=== PATIENT | male | born 1945 | race Caucasian/White ===

== ENCOUNTER 2018-10-19 15:31 | Inpatient (IN) ==
[2018-10-19] MEDS ORDERED: Sodium Chlor 0.9% Inj 500 ML IV.SIG SCH (16:00)
--- NOTE | 2018-10-19 16:02 | ED ---
HPI General Chief complaint: Weakness Stated complaint: weaknes/evac Time Seen by Provider: 10/19/18 15:37 Source: patient and EMS Mode of arrival: EMS Limitations: physical limitation History of Present Illness HPI narrative: Mr Meeks is a 73 year old male who presents to the ED for evaluation of weakness and SOB for several days. The patient has COPD and discontinued his steroid inhaler 3-4 months ago due to increased cost. He states that he has been feeling "off" for a few weeks and this week he has not gotten out of bed. His called [facility] and upon their arrival the patient's SpO2 was 74% on room air, which was corrected to 94% on 2L of O2 via nasal cannula. The patient denies SOB but states he feels tired all of the time and he has not eaten in 3-4 days. He states that he is lightheaded upon standing and has fallen 5-6 times when walking with his walker in the last 2 months, but he denies syncope or LOC. He denies chest pain, abdominal pain, palpitations, diarrhea, constipation, dizziness, or syncope. His PMH is significant for COPD and stage 3 renal failure. He is unsure what medications he takes besides an albuterol rescue inhaler. The patient smokes 15 cigarettes per day, but denies alcohol or drug use. Related Data Home Medications Medication Instructions Recorded Confirmed aspirin 81 mg PO DAILY 10/19/18 10/19/18 bisoprolol fumarate 5 mg PO DAILY 10/19/18 10/19/18 calcitriol 0.25 mcg PO DAILY 10/19/18 10/19/18 esomeprazole magnesium [Nexium] 20 mg PO DAILY 10/19/18 10/19/18 ferrous sulfate [Iron (ferrous 325 mg PO DAILY 10/19/18 10/19/18 sulfate)] imipramine HCl 50 mg PO DAILY 10/19/18 10/19/18 megestrol 400 mg PO DAILY 10/19/18 10/19/18 mirtazapine 7.5 mg PO DAILY 10/19/18 10/19/18 pravastatin 40 mg PO DAILY 10/19/18 10/19/18 Allergies Allergy/AdvReac Type Severity Reaction Status Date / Time No Known Allergies Allergy Verified 10/19/18 15:41 Review of Systems ROS: all other systems reviewed are negative FOR[facility]LY [facility] Medical History Medical History Asthma (Acute) COPD (chronic obstructive pulmonary disease) (Acute) Social History Social History Substance History: No History of Abuse Second Hand Smoke Exposure: Yes Smoking Status: Current every day smoker Tobacco Type: Cigarettes How Often Do You Have a Drink Containing Alcohol: Never Recent Travel in [facility] within the Last 8 Weeks: No Recent Out of Country Travel within the Last 8 Weeks: No Immunization History Tetanus Immunization: Unsure Exam Narrative Exam Narrative: GENERAL: anorexic and dishovled. SKIN: Warm and dry. HEAD: Atraumatic. Normocephalic. EYES: Pupils equal and round. No scleral icterus. No injection or drainage. ENT: No nasal bleeding or discharge. Mucous membranes pink and moist. Tongue is midline. No uvula deviation. NECK: Trachea midline. No JVD. CARDIOVASCULAR: Regular rate and rhythm. No murmurs, S3, S4. RESPIRATORY: No accessory muscle use. Some wheezing noted on the lower and upper lung garcia. Breath sounds equal bilaterally. GASTROINTESTINAL: Abdomen soft, non-tender, nondistended. Hepatic and splenic margins not palpable. MUSCULOSKELETAL: Extremities without clubbing, cyanosis, or edema. No obvious deformities. Full range of motion of the upper and lower extremity bilaterally. 2+ pulses bilaterally. NEUROLOGICAL: Awake and alert. No obvious cranial nerve deficits. Motor grossly within normal limits. Five out of 5 muscle strength in the arms and legs. Normal speech. PSYCHIATRIC: Appropriate mood and affect; insight and judgment normal. Course Initial Documented Vital Signs Temperature 97.9 F 10/19/18 15:49 Respiratory Rate 22 10/19/18 15:49 Blood Pressure 146/75 H 10/19/18 15:49 Last Documented Vital Signs Temperature 98.4 F 10/20/18 08:00 Pulse Rate 74 10/20/18 16:48 Respiratory Rate 18 10/20/18 16:48 Blood Pressure 155/74 H 10/20/18 08:00 Pulse Oximetry 96 10/20/18 09:32 Medical Decision Making MDM Narrative Medical decision making narrative: 73-year-old male that presents to the ED for evaluation of facial trauma and shortness of breath. Patient was properly examined and was found to have signs and symptoms of unclear etiology. Initially I was told that his saturation was in the 70s by [facility] but with oxygen he came to the 90s. Patient does not use suction at home. Probably patient is noncompliant secondary to issues getting his medications filled secondary to morning. Labs and imaging were ordered here. My attending was made aware of findings. Imaging did show what appears to be pneumonia on the right lung. Blood work did show what appears to be worsening kidney function as well as what appears to be elevated lactic acid. At this time patient does meet sepsis criteria. Patient started antibiotics IV. Fluids given. Patient was given breathing treatment as well as put on oxygen. Solumedrol was started as well. This time case was discussed with my attending Dr. Adorno who agrees the patient should be admitted. Case discussed with Dr. Watson who agrees admission to his service. Medical Screen Exam Complete: Yes Emergency Medical Condition: Yes Differential Diagnosis Differential Diagnosis: Hypoxia versus COPD exacerbation versus sepsis versus pneumonia versus failure to thrive versus kidney injury Medical Records Medical records reviewed: Yes I reviewed the patient's medical records. Lab Data Lab results reviewed: Yes I reviewed the patient's lab results. Result diagrams: 10/20/18 12:16 10/20/18 12:16 Lab Results 10/19/18 10/19/18 10/19/18 Range/Units 15:52 15:52 15:52 WBC 15.0 H (4.0-11.0) th/mm3 RBC 3.48 L (4.50-5.90) mil/mm3 Hgb 10.4 L (13.0-17.0) gm/dL Hct 32.6 L (39.0-51.0) % MCV 93.6 (80.0-100.0) fL MCH 30.0 (27.0-34.0) pg MCHC 32.0 (32.0-36.0) % RDW 16.7 (11.6-17.2) % Plt Count 196 (150-450) th/mm3 MPV 9.0 (7.0-11.0) fL Neut % (Auto) 80.1 H (16.0-70.0) % Lymph % (Auto) 12.6 (9.0-44.0) % Ocean % (Auto) 6.7 (0.0-8.0) % Eos % (Auto) 0.5 (0.0-4.0) % Baso % (Auto) 0.1 (0.0-2.0) % Neut # (Auto) 12.0 H (1.8-7.7) th/mm3 Lymph # (Auto) 1.9 (1.0-4.8) th/mm3 Ocean # (Auto) 1.0 H (0.0-0.9) th/mm3 Eos # (Auto) 0.1 (0.0-0.4) th/mm3 Baso # (Auto) 0.0 (0.0-0.2) th/mm3 WBC Differential . Differential Comment Auto diff final Puncture Site Patient Temperature O2 Saturation (90-100) % ABG pH (7.380-7.420) ABG pCO2 (38-42) mmHg ABG pO2 (61-120) mmHg ABG HCO3 (22-26) mmol/L ABG O2 Content (12.0-20.0) Vol % ABG Base Excess (-2-2) mmol/L ABG Methemoglobin (0-2) % Tyrell Test Hemoglobin (12.0-16.0) G/DL Carboxyhemoglobin (0-4) % Inspired O2 % Critical Value Sodium 148 H (136-145) meq/L Potassium 4.7 (3.5-5.1) meq/L Chloride 121 H (98-107) meq/L Carbon Dioxide 17.4 L (21.0-32.0) meq/L Anion Gap 10 (5-15) meq/L BUN 68 H (7-18) mg/dL Creatinine 3.15 H (0.60-1.30) mg/dL Estimated GFR 19 L (>89) mL/min Random Glucose 88 (74-106) mg/dL Lactic Acid 2.3 H (0.4-2.0) mmol/L Calcium 8.1 L (8.5-10.1) mg/dL Magnesium 1.3 L (1.5-2.5) mg/dL Total Bilirubin 0.3 (0.2-1.0) mg/dL AST 26 (15-37) U/L ALT 18 (12-78) U/L Alkaline Phosphatase 60 (45-117) U/L Total Creatine Kinase 37 L (39-308) U/L Troponin I Less than 0.02 L (0.02-0.05) ng/mL Total Protein 6.7 (6.4-8.2) g/dL Albumin 2.6 L (3.4-5.0) g/dL Prealbumin (20-40) mg/dL TSH 1.540 (0.358-3.740) uIU/mL Urine Color (Yellw/Straw) Urine Clarity (Clear) Urine pH (5.0-8.5) Ur Specific York (1.002-1.035) Urine Protein (Neg-Trace) mg/dL Urine Glucose (UA) (Negative) mg/dL Urine Ketones (Negative) mg/dL Urine Occult Blood (Negative) Urine Nitrate (Negative) Urine Bilirubin (Negative) Urine Urobilinogen (Less than 2) mg/dL Ur Leukocyte Esterase (Negative) Urine RBC (0-3) /hpf Urine WBC (0-5) /hpf Ur Squamous Epith Cells (0-5) /hpf Urine Mucus (Occasional) /lpf Micro UA Comment Ur Microscopic Review Urine Culture Comments 10/19/18 10/19/18 10/19/18 Range/Units 16:29 20:11 20:11 WBC (4.0-11.0) th/mm3 RBC (4.50-5.90) mil/mm3 Hgb (13.0-17.0) gm/dL Hct (39.0-51.0) % MCV (80.0-100.0) fL MCH (27.0-34.0) pg MCHC (32.0-36.0) % RDW (11.6-17.2) % Plt Count (150-450) th/mm3 MPV (7.0-11.0) fL Neut % (Auto) (16.0-70.0) % Lymph % (Auto) (9.0-44.0) % Ocean % (Auto) (0.0-8.0) % Eos % (Auto) (0.0-4.0) % Baso % (Auto) (0.0-2.0) % Neut # (Auto) (1.8-7.7) th/mm3 Lymph # (Auto) (1.0-4.8) th/mm3 Ocean # (Auto) (0.0-0.9) th/mm3 Eos # (Auto) (0.0-0.4) th/mm3 Baso # (Auto) (0.0-0.2) th/mm3 WBC Differential Differential Comment Puncture Site Right radial Patient Temperature 98.6 O2 Saturation 95 (90-100) % ABG pH 7.36 L (7.380-7.420) ABG pCO2 25 L (38-42) mmHg ABG pO2 96 (61-120) mmHg ABG HCO3 14 L* (22-26) mmol/L ABG O2 Content 14.9 (12.0-20.0) Vol % ABG Base Excess -10.8 L (-2-2) mmol/L ABG Methemoglobin 0.8 (0-2) % Tyrell Test Present Hemoglobin 11.1 L (12.0-16.0) G/DL Carboxyhemoglobin 0.9 (0-4) % Inspired O2 21 % Critical Value Yes Sodium 149 H (136-145) meq/L Potassium 4.4 (3.5-5.1) meq/L Chloride 121 H (98-107) meq/L Carbon Dioxide 13.5 L (21.0-32.0) meq/L Anion Gap 15 (5-15) meq/L BUN 63 H (7-18) mg/dL Creatinine 2.80 H (0.60-1.30) mg/dL Estimated GFR 22 L (>89) mL/min Random Glucose 87 (74-106) mg/dL Lactic Acid 1.3 (0.4-2.0) mmol/L Calcium 7.8 L (8.5-10.1) mg/dL Magnesium (1.5-2.5) mg/dL Total Bilirubin (0.2-1.0) mg/dL AST (15-37) U/L ALT (12-78) U/L Alkaline Phosphatase (45-117) U/L Total Creatine Kinase (39-308) U/L Troponin I (0.02-0.05) ng/mL Total Protein (6.4-8.2) g/dL Albumin (3.4-5.0) g/dL Prealbumin (20-40) mg/dL TSH (0.358-3.740) uIU/mL Urine Color (Yellw/Straw) Urine Clarity (Clear) Urine pH (5.0-8.5) Ur Specific York (1.002-1.035) Urine Protein (Neg-Trace) mg/dL Urine Glucose (UA) (Negative) mg/dL Urine Ketones (Negative) mg/dL Urine Occult Blood (Negative) Urine Nitrate (Negative) Urine Bilirubin (Negative) Urine Urobilinogen (Less than 2) mg/dL Ur Leukocyte Esterase (Negative) Urine RBC (0-3) /hpf Urine WBC (0-5) /hpf Ur Squamous Epith Cells (0-5) /hpf Urine Mucus (Occasional) /lpf Micro UA Comment Ur Microscopic Review Urine Culture Comments 10/20/18 10/20/18 10/20/18 Range/Units 06:00 12:16 12:16 WBC 11.6 H (4.0-11.0) th/mm3 RBC 2.95 L (4.50-5.90) mil/mm3 Hgb 8.9 L (13.0-17.0) gm/dL Hct 27.7 L (39.0-51.0) % MCV 93.9 (80.0-100.0) fL MCH 30.3 (27.0-34.0) pg MCHC 32.3 (32.0-36.0) % RDW 17.0 (11.6-17.2) % Plt Count 187 (150-450) th/mm3 MPV 9.4 (7.0-11.0) fL Neut % (Auto) 93.6 H (16.0-70.0) % Lymph % (Auto) 5.0 L (9.0-44.0) % Ocean % (Auto) 1.3 (0.0-8.0) % Eos % (Auto) 0.0 (0.0-4.0) % Baso % (Auto) 0.1 (0.0-2.0) % Neut # (Auto) 10.9 H (1.8-7.7) th/mm3 Lymph # (Auto) 0.6 L (1.0-4.8) th/mm3 Ocean # (Auto) 0.2 (0.0-0.9) th/mm3 Eos # (Auto) 0.0 (0.0-0.4) th/mm3 Baso # (Auto) 0.0 (0.0-0.2) th/mm3 WBC Differential . Differential Comment Auto diff final Puncture Site Patient Temperature O2 Saturation (90-100) % ABG pH (7.380-7.420) ABG pCO2 (38-42) mmHg ABG pO2 (61-120) mmHg ABG HCO3 (22-26) mmol/L ABG O2 Content (12.0-20.0) Vol % ABG Base Excess (-2-2) mmol/L ABG Methemoglobin (0-2) % Tyrell Test Hemoglobin (12.0-16.0) G/DL Carboxyhemoglobin (0-4) % Inspired O2 % Critical Value Sodium 153 H (136-145) meq/L Potassium 4.1 (3.5-5.1) meq/L Chloride 127 H (98-107) meq/L Carbon Dioxide 15.8 L (21.0-32.0) meq/L Anion Gap 10 (5-15) meq/L BUN 56 H (7-18) mg/dL Creatinine 2.63 H (0.60-1.30) mg/dL Estimated GFR 24 L (>89) mL/min Random Glucose 132 H (74-106) mg/dL Lactic Acid (0.4-2.0) mmol/L Calcium 7.8 L (8.5-10.1) mg/dL Magnesium (1.5-2.5) mg/dL Total Bilirubin (0.2-1.0) mg/dL AST (15-37) U/L ALT (12-78) U/L Alkaline Phosphatase (45-117) U/L Total Creatine Kinase (39-308) U/L Troponin I (0.02-0.05) ng/mL Total Protein (6.4-8.2) g/dL Albumin (3.4-5.0) g/dL Prealbumin 20 (20-40) mg/dL TSH (0.358-3.740) uIU/mL Urine Color Yellow (Yellw/Straw) Urine Clarity Clear (Clear) Urine pH 5.0 (5.0-8.5) Ur Specific York 1.017 (1.002-1.035) Urine Protein 100 H (Neg-Trace) mg/dL Urine Glucose (UA) Negative (Negative) mg/dL Urine Ketones Negative (Negative) mg/dL Urine Occult Blood Negative (Negative) Urine Nitrate Negative (Negative) Urine Bilirubin Negative (Negative) Urine Urobilinogen Less than 2 (Less than 2) mg/dL Ur Leukocyte Esterase Negative (Negative) Urine RBC 1 (0-3) /hpf Urine WBC 1 (0-5) /hpf Ur Squamous Epith Cells <1 (0-5) /hpf Urine Mucus Few H (Occasional) /lpf Micro UA Comment Culture not ind Ur Microscopic Review Not Reportable Urine Culture Comments Culture not ind Imaging Data Attestation: I personally reviewed and interpreted this imaging study as follows : Radiologist's impression: Chest X-Ray 10/19/18 15:43 CONCLUSION: Mild faint infiltrate in the peripheral aspect of the right upper lung. COPD with chronic interstitial changes. Venous Doppler Study 10/19/18 15:51 CONCLUSION: 1. Negative exam with no evidence of deep venous thrombosis. ECG Data Attestation: I personally reviewed and interpreted this ECG as follows: Interpretation: EKG shows sinus arrhythmia but no sign of acute ischemia and arrhythmia otherwise read by me and attending. Discharge Plan Discharge Disposition Patient Disposition: ED Admit(ED Internal Use Only) Discharge Order Discharge Orders: ED Use Only Admit Order (Routine); Ordered 10/19/18 Ordered By: Bola Norris Discharge Details Diagnosis: Sepsis, Pneumonia, Acute kidney injury Physicians Team ED Provider: Jocelin Adorno ED Midlevel Provider: Bola Norris Primary Care Provider: UNKNOWN, Attending Provider: Imani Huggins Other Providers: [employer] Status ED Status: Left Department Discharge Information Discharge Date/Time: 10/19/18 18:54
[2018-10-19 16:11] LABS: Baso % (Auto) 0.1 % (0.0-2.0); Eos # (Auto) 0.1 th/mm3 (0.0-0.4); Eos % (Auto) 0.5 % (0.0-4.0); Hematocrit 32.6 % (39.0-51.0); Hemoglobin 10.4 gm/dL (13.0-17.0); Lymph # (Auto) 1.9 th/mm3 (1.0-4.8); Lymph % (Auto) 12.6 % (9.0-44.0); Mean Corpuscular Volume 93.6 fL (80.0-100.0); Mono % (Auto) 6.7 % (0.0-8.0); Neut % (Auto) 80.1 % (16.0-70.0); Platelet Count 196 th/mm3 (150-450); Red Blood Count 3.48 mil/mm3 (4.50-5.90); Red Cell Distribution Width 16.7 % (11.6-17.2)
--- NOTE | 2018-10-19 16:21 | XR ---
EXAM DATE: 10/19/2018 4:18 PM EST AGE/SEX: 73 years / Male INDICATIONS: Cough. CLINICAL DATA: This is the patient's initial encounter. Patient reports that signs and symptoms have been present for 1 day and indicates a pain score of Nonresponsive. MEDICAL/SURGICAL HISTORY: Non-responsive. Non-responsive. COMPARISON: POI, XR CHEST PA AND LAT, 08/10/2016. . FINDINGS: There is hyperaeration of both lung garcia. There is chronic interstitial changes bilaterally. There is a mild faint infiltrate in the peripheral aspect of the right upper lung. Otherwise, the rest the lungs are grossly clear. There are no pleural effusions or pulmonary edema. The heart size is within normal limits. No other new or significant changes are seen compared to the prior exam. CONCLUSION: Mild faint infiltrate in the peripheral aspect of the right upper lung. COPD with chronic interstitial changes. Electronically signed by: Gonzalo Mercer MD Board Certified Radiologist 10/19/2018 4:19 PM EST
[2018-10-19 16:34] LABS: Alanine Aminotransferase 18 U/L (12-78); Albumin 2.6 g/dL (3.4-5.0); Anion Gap 10 meq/L (5-15); Aspartate Aminotransferase 26 U/L (15-37); Blood Urea Nitrogen 68 mg/dL (7-18); Calcium 8.1 mg/dL (8.5-10.1); Carbon Dioxide 17.4 meq/L (21.0-32.0); Chloride 121 meq/L (98-107); Glomerular Filtration Rate 19 mL/min (>89); Glucose,Random 88 mg/dL (74-106); Magnesium 1.3 mg/dL (1.5-2.5); Potassium 4.7 meq/L (3.5-5.1); Sodium 148 meq/L (136-145)
[2018-10-19 16:38] LABS: ABG Base Excess -10.8 mmol/L (-2-2); ABG PCO2 25 mmHg (38-42); ABG PO2 96 mmHg (61-120)
[2018-10-19 16:44] LABS: Alkaline Phosphatase 60 U/L (45-117); Total Protein 6.7 g/dL (6.4-8.2)
[2018-10-19 16:46] LABS: Creatine Kinase 37 U/L (39-308)
[2018-10-19] MEDS ORDERED: Azithromycin Inj 500 MG in Sodium Chlor 0.9% Inj 250 ML IV.SIG ONE (16:52)
[2018-10-19] MEDS ORDERED: MethylPREDNISolone Sod Succinate Inj 125 MG/2 ML Vial IV.PUSH ONE (16:54)
--- NOTE | 2018-10-19 16:56 | US ---
EXAM DATE: 10/19/2018 4:53 PM EST AGE/SEX: 73 years / Male INDICATIONS: Edema. CLINICAL DATA: This is the patient's initial encounter. Patient reports that signs and symptoms have been present for 2 weeks and indicates a pain score of 6/10. MEDICAL/SURGICAL HISTORY: Asthma. Chronic obstructive pulmonary disease. Renal disease - Stage III. None. COMPARISON: No prior exams available for comparison. TECHNIQUE: Venous ultrasound of both lower extremities was performed from the inguinal ligament to t he proximal calf. Real-time, color Doppler and spectral tracing, compression and augmentation techni ques were used. FINDINGS: Normal compression of the deep venous system from the inguinal region to the proximal calf . No echogenic clot is seen. Normal response of the venous system to augmentation and respiration. CONCLUSION: 1. Negative exam with no evidence of deep venous thrombosis. Electronically signed by: Xavier Daley MD Board Certified Radiologist 10/19/2018 4:54 PM EST
[2018-10-19] MEDS ORDERED: Acetaminophen 325 MG Tablet PO PRN (17:23)
[2018-10-19] MEDS ORDERED: guaiFENesin/Dextromethorphan 200 MG/20 MG 10 ML UDC PO PRN (17:23)
[2018-10-19] MEDS ORDERED: Mag Sulf 1 gm/100 ml Premix 100 ML IV.SIG ONE (17:26)
[2018-10-19] MEDS ORDERED: Bisacodyl 10 MG Supp RECTAL PRN (17:26)
[2018-10-19] MEDS ORDERED: Sod Chloride 0.9% Inj 1,000 ML IV.SIG SCH (17:30)
--- NOTE | 2018-10-19 18:24 | P.HPIM ---
History of Present Illness Primary Care Physician: UNKNOWN Chief Complaint: Generalized weakness History of Present Illness: This is a 73-year-old male with a history of COPD, chronic kidney disease stage III, coronary artery disease, CVA, peripheral artery disease status post carotid surgery, hypertension and hyperlipidemia. States he has been feeling poorly for the past several weeks with anorexia and generalized weakness. According to his he has not been eating adequately for the past several days. He denies dizziness. He also reports of productive coughing with thick phlegm and shortness of breath with wheezing denies fever or chills. Because of financial constraints, he has discontinued his steroid inhaler. In the emergency department, patient was found to be septic with pneumonia and received 1 L fluid bolus, IV Rocephin and Zithromax and IV steroids. He also has worsening kidney function. All other systems reviewed negative. Please note patient is a poor historian. Chest x-ray independently reviewed by me with COPD with chronic interstitial changes and mild infiltrate in the right upper lobe. EKG shows NSR, no ST elevation or depression, and no arrhythmias. No significant T-wave inversions. EKG independently reviewed reviewed by me with sinus tachycardia Inpatient Certification Inpatient Certification: I certify that the inpatient services were ordered in accordance with Medicare regulations governing the order. This includes certification that hospital inpatient services are reasonable and necessary and in the case of services not specified as inpatient-only under 42 CFR 419.22(n), that they are appropriately provided as inpatient services in accordance to with the 2-midnight benchmark under 43 CFR 412.3(e) Estimated Total Length of Stay (Days): 2 Plans for Post Hospital Care: Not yet determined Review of Systems Review of Systems: all other systems reviewed are negative [facility] Medical History Medical History Asthma (Acute) COPD (chronic obstructive pulmonary disease) (Acute) Family History Family History Other Coronary artery disease Social History Social History Substance History: No History of Abuse Smoking Status: Current every day smoker Tobacco Type: Cigarettes How Often Do You Have a Drink Containing Alcohol: Monthly or less Recent Travel in [facility] within the Last 8 Weeks: No Recent Out of Country Travel within the Last 8 Weeks: No Immunization History Tetanus Immunization: Unsure Medications and Allergies Allergies Allergy/AdvReac Type Severity Reaction Status Date / Time No Known Allergies Allergy Verified 10/19/18 15:41 Home Medications Medication Instructions Recorded Confirmed Type aspirin 81 mg PO DAILY 10/19/18 10/19/18 History bisoprolol fumarate 5 mg PO DAILY 10/19/18 10/19/18 History calcitriol 0.25 mcg PO DAILY 10/19/18 10/19/18 History esomeprazole magnesium [Nexium] 20 mg PO DAILY 10/19/18 10/19/18 History ferrous sulfate [Iron (ferrous 325 mg PO DAILY 10/19/18 10/19/18 History sulfate)] imipramine HCl 50 mg PO DAILY 10/19/18 10/19/18 History megestrol 400 mg PO DAILY 10/19/18 10/19/18 History mirtazapine 7.5 mg PO DAILY 10/19/18 10/19/18 History pravastatin 40 mg PO DAILY 10/19/18 10/19/18 History Active Medications: Active Medications Acetaminophen (Tylenol) 650 mg PO Q4H PRN PRN Reason: TEMPERATURE > 101 F Albuterol (Duoneb Neb (Prn)) 1 ampul NEB Q4HR NEB PRN PRN Reason: SHORTNESS OF BREATH/WHEEZING Albuterol (Duoneb Neb (Carol)) 1 ampul NEB Q6HR NEB CAROL Aspirin (Aspirin Chew) 81 mg PO DAILY CAROL Bisacodyl (Dulcolax Supp) 10 mg RECTAL DAILY PRN PRN Reason: SEVERE CONSITIPATION Calcitriol (Rocaltrol) 0.25 mcg PO DAILY CAROL Ferrous Sulfate (Ferosul) 325 mg PO DAILY CAROL Guaifenesin/Dextromethorphan (Robitussin Dm Liq) 10 ml PO Q4H PRN PRN Reason: COUGH Heparin Sodium (Porcine) (Heparin Inj) 5,000 units SQ Q8H CAROL Sodium Chloride (Ns Inj) 1,000 mls @ 1,000 mls/hr IV.SIG BOLUS CAROL Stop: 10/19/18 18:29 Ceftriaxone Sodium 1,000 mg/ (Sodium Chloride) 100 mls @ 200 mls/hr IV.SIG Q24H CAROL Sodium Chloride (Ns Inj) 1,000 mls @ 60 mls/hr IV.CONT .[id number] CAROL Azithromycin 500 mg/ Sodium (Chloride) 250 mls @ 250 mls/hr IV.SIG Q24H CAROL Magnesium Sulfate/Dextrose (Magnesium Sulfate 1 Gm/D5w 100 Ml Premix) 100 mls @ 100 mls/hr IV.SIG ONCE ONE Stop: 10/19/18 18:25 Lactulose (Lactulose Liq) 30 ml PO DAILY PRN PRN Reason: SEVERE CONSITIPATION Megestrol Acetate (Megace Liq) 400 mg PO DAILY [facility] Methylprednisolone Sodium Succinate (Solumedrol Inj) 40 mg IV.PUSH Q12H CAROL Non-Formulary Medication (Bisoprolol) 5 mg PO DAILY CAROL Non-Formulary Medication (Esomeprazole Magnesium [Nexium]) 20 mg PO DAILY CAROL Non-Formulary Medication (Imipramine Hcl [Imipramine Hcl]) 50 mg PO DAILY [facility] Non-Formulary Medication (Mirtazapine [Mirtazapine]) 7.5 mg PO DAILY [facility] Ondansetron HCl (Zofran Inj) 4 mg IV.PUSH Q6H PRN PRN Reason: NAUSEA OR VOMITING Pravastatin Sodium (Pravachol) 40 mg PO DAILY [facility] Sennosides (Senokot) 17.2 mg PO Q12H PRN PRN Reason: Moderate Constipation Sodium Chloride (Ns Flush) 2 ml IV.FLUSH BID CAROL Sodium Chloride (Ns Flush) 2 ml IV.FLUSH PRN PRN PRN Reason: FLUSH AFTER USING IV ACCESS Sodium Chloride (Ns Flush) 2 ml IV.FLUSH BID CAROL Sodium Chloride (Ns Flush) 2 ml IV.FLUSH PRN PRN PRN Reason: FLUSH AFTER USING IV ACCESS Physical Exam Vital signs: Last Vital Signs Temp 97.9 F 10/19/18 15:49 Pulse 98 H 10/19/18 16:30 Resp 17 10/19/18 16:30 BP 146/75 H 10/19/18 15:49 Pulse Ox 98 10/19/18 16:32 Intake & Output 10/17/18 10/18/18 10/19/18 10/20/18 06:59 06:59 06:59 06:59 Weight 54.431 kg Narrative: GENERAL: Well-developed, asthenic in no distress SKIN: Warm and dry. HEAD: Atraumatic. Normocephalic. EYES: Pupils equal and round. No scleral icterus. No injection or drainage. ENT: No nasal bleeding or discharge. Mucous membranes pink and moist. NECK: Trachea midline. No JVD. CARDIOVASCULAR: Tachycardic RESPIRATORY: No accessory muscle use. Decreased breath sounds equal bilaterally. GASTROINTESTINAL: Abdomen soft, non-tender, nondistended. MUSCULOSKELETAL: Extremities without clubbing, cyanosis, or edema. No obvious deformities. NEUROLOGICAL: Awake and alert. No obvious cranial nerve deficits. Motor grossly within normal limits. Five out of 5 muscle strength in the arms and legs. Normal speech. PSYCHIATRIC: Appropriate mood and affect; insight and judgment normal. Results Labs CBC & Chem 7: 10/19/18 15:52 10/19/18 15:52 Imaging Impressions Chest X-Ray 10/19/18 15:43 CONCLUSION: Mild faint infiltrate in the peripheral aspect of the right upper lung. COPD with chronic interstitial changes. Venous Doppler Study 10/19/18 15:51 CONCLUSION: 1. Negative exam with no evidence of deep venous thrombosis. Caprini VTE Risk Assessment Caprini VTE Risk Assessment: Moderate/High Risk (score >= 2) Caprini Risk Assessment Model: Point Value = 1 Point Value = 2 Point Value = 3 Point Value = 5 Age 41-60 Minor surgery BMI > 25 kg/m2 Swollen legs Varicose veins or History of unexplained or recurrent spontaneous Oral contraceptives or hormone replacement Sepsis (< 1 month) Serious lung disease, including pneumonia (< 1 month) Abnormal pulmonary function Acute myocardial infarction Congestive heart failure (< 1 month) History of inflammatory bowel disease Medical patient at bed rest Age 61-74 Arthroscopic surgery Major open surgery (> 45 min) Laparoscopic surgery (> 45 min) Malignancy Confined to bed (> 72 hours) Immobilizing plaster cast Central venous access Age >= 75 History of VTE Family history of VTE Factor V Leiden Prothrombin [id number] Lupus anticoagulant Anticardiolipin antibodies Elevated serum homocysteine Heparin-induced thrombocytopenia Other congenital or acquired thrombophilia Stroke (< 1 month) Elective arthroplasty Hip, pelvis, or leg fracture Acute spinal cord injury (< 1 month) Prophylaxis Regimen: Total Risk Factor Score Risk Level Prophylaxis Regimen 0-1 Low Early ambulation 2 Moderate Order ONE of the following: *Sequential Compression Device (SCD) *Heparin 5000 units SQ BID 3-4 Higher Order ONE of the following medications: *Heparin 5000 units SQ TID *Enoxaparin/Lovenox 40 mg SQ daily (WT < 150 kg, CrCl > 30 mL/min) *Enoxaparin/Lovenox 30 mg SQ daily (WT < 150 kg, CrCl > 10-29 mL/min) *Enoxaparin/Lovenox 30 mg SQ BID (WT < 150 kg, CrCl > 30 mL/min) AND/OR *Sequential Compression Device (SCD) 5 or more Highest Order ONE of the following medications: *Heparin 5000 units SQ TID (Preferred with Epidurals) *Enoxaparin/Lovenox 40 mg SQ daily (WT < 150 kg, CrCl > 30 mL/min) *Enoxaparin/Lovenox 30 mg SQ daily (WT < 150 kg, CrCl > 10-29 mL/min) *Enoxaparin/Lovenox 30 mg SQ BID (WT < 150 kg, CrCl > 30 mL/min) AND *Sequential Compression Device (SCD) Assessment and Plan Plan This is a 73-year-old male with a history of COPD, chronic kidney disease stage III, coronary artery disease, CVA, peripheral artery disease status post carotid surgery, hypertension and hyperlipidemia. Presents with generalized weakness, anorexia, cough and shortness of breath. Chest x-ray with right upper lobe pneumonia. Lactic acid over 2 Sepsis secondary to pneumonia. Continue IV hydration, IV Rocephin and Zithromax and obtain blood cultures, sputum culture, flu screen and Legionella and pneumococcal urinary antigen. Acute on chronic kidney disease stage III with hypomagnesemia secondary to dehydration and sepsis. Continue IV hydration. Avoid nephrotoxins. Replace magnesium with IV magnesium 1 g. Check BMP and magnesium in the morning Check orthostatic vital signs Nursing to update med list DVT prophylaxis with SCD and early ambulation
[2018-10-19] MEDS: Heparin - SQ 10,000 UNITS/ML Vial SQ SCH (18:36)
[2018-10-19 20:50] LABS: Calcium 7.8 mg/dL (8.5-10.1); Carbon Dioxide 13.5 meq/L (21.0-32.0); Potassium 4.4 meq/L (3.5-5.1)
[2018-10-19] MEDS ORDERED: Senna/Docusate Sodium 8.6/50 MG Tablet PO SCH (21:00)
[2018-10-19] MEDS: Sod Chloride 0.9% Inj 1,000 ML IV.CONT SCH (21:04)
[2018-10-20] MEDS: Heparin - SQ 10,000 UNITS/ML Vial SQ SCH ×3 (01:41→17:18)
[2018-10-20] MEDS: MethylPREDNISolone Sod Succinate Inj 40 MG/ML Vial IV.PUSH SCH ×2 (05:51→17:18)
[2018-10-20 06:55] LABS: Bilirubin,Urine Negative (Negative); Clarity,Urine Clear (Clear); Color,Urine Yellow (Yellw/Straw); Glucose,Urine (UA) Negative (Negative); Leukocyte Esterase,Urine Negative (Negative); Mucus,Urine Few /lpf (Occasional); Nitrite,Urine Negative (Negative); Specific Gravity,Urine 1.017 (1.002-1.035); Squamous Epithelial Cell,Urine <1 /hpf (0-5)
[2018-10-20] MEDS ORDERED: Influenza (Quadrivalent) Vaccine 0.5 ML Syringe IM ONE (09:00)
--- NOTE | 2018-10-20 10:47 | P.PN ---
Subjective Interval history: Patient says he feels a little bit improved today, however per he is not improving. Patient feels weak and he has no appetite. He is not able to eat much. She says at home takes Ensure with ice cream. Patient coughing however not much sputum production. No fever or chills overnight. Some nausea received Zofran and feels better. No diarrhea. Physical Exam Vital signs: Vital Signs 10/19/18 15:49 10/19/18 16:30 10/19/18 16:32 Temperature 97.9 F Pulse Rate 98 H Respiratory Rate 22 17 Blood Pressure 146/75 H Pulse Oximetry 98 10/19/18 18:00 10/19/18 20:00 10/19/18 21:43 Temperature 97.8 F Pulse Rate 100 H 100 H Respiratory Rate 18 22 18 Blood Pressure 148/70 H Pulse Oximetry 100 98 97 10/20/18 00:00 10/20/18 03:08 10/20/18 04:00 Temperature 98 F 98 F Pulse Rate 106 H 102 H 110 H Respiratory Rate 22 20 22 Blood Pressure 137/60 119/65 Pulse Oximetry 96 98 10/20/18 08:00 10/20/18 09:32 Temperature 98.4 F Pulse Rate 105 H 103 H Respiratory Rate 22 20 Blood Pressure 155/74 H Pulse Oximetry 97 96 Intake & Output 10/19/18 10/20/18 10/20/18 18:59 06:59 18:59 Intake Total 850 / 850 1340 / 1340 Balance 850 / 850 1340 / 1340 Weight 54.431 kg 57.4 kg Intake: IV 850 / 850 1100 / 1100 Azithromycin Inj 500 MG In NS 250 / 250 Inj 250 ML @ 250 mls/hr IV.SIG ONCE ONE Rx#:[id number] Magnesium Sulfate 1 gm/D5W 100 100 / 100 ml Premix 100 ML @ 100 mls/hr IV.SIG ONCE ONE Rx#:[id number] NS Inj 1,000 ML @ 1000 mls/hr 1000 / 1000 IV.SIG BOLUS SELAM Rx#:[id number] NS Inj 500 ML @ 1000 mls/hr IV. 500 / 500 SIG BOLUS SELAM Rx#:[id number] Rocephin Inj 1,000 MG In NS Inj 100 / 100 100 ML @ 200 mls/hr IV.SIG ONCE ONE Rx#:[id number] Oral 240 / 240 Other: # Incontinent Voids 2 Narrative: GENERAL: The patient is a elderly 73-year-old male, cachectic, appearing chronically ill. SKIN: pale. CARDIOVASCULAR: Normal s1 and s2 RESPIRATORY: No accessory muscle use. Decreased breath sounds equal bilaterally. No wheezing. GASTROINTESTINAL: Abdomen soft, non-tender, nondistended. MUSCULOSKELETAL: Muscle wasting. Extremities without clubbing, cyanosis, or edema. No obvious deformities. NEUROLOGICAL: Awake and alert. No obvious cranial nerve deficits. Motor grossly within normal limits. Weak handgrip. Normal speech. PSYCHIATRIC: Appropriate mood and affect; insight and judgment normal. Results - Labs CBC & Chem 7: 10/20/18 12:16 10/20/18 12:16 Laboratory Results - last 24 hr 10/19/18 10/19/18 10/19/18 15:52 15:52 15:52 WBC 15.0 H RBC 3.48 L Hgb 10.4 L Hct 32.6 L MCV 93.6 MCH 30.0 MCHC 32.0 RDW 16.7 Plt Count 196 MPV 9.0 Neut % (Auto) 80.1 H Lymph % (Auto) 12.6 [place] % (Auto) 6.7 Eos % (Auto) 0.5 Baso % (Auto) 0.1 Neut # (Auto) 12.0 H Lymph # (Auto) 1.9 [place] # (Auto) 1.0 H Eos # (Auto) 0.1 Baso # (Auto) 0.0 WBC Differential . Differential Comment Auto diff final Puncture Site Patient Temperature O2 Saturation ABG pH ABG pCO2 ABG pO2 ABG HCO3 ABG O2 Content ABG Base Excess ABG Methemoglobin Tyrell Test Hemoglobin Carboxyhemoglobin Inspired O2 Critical Value Sodium 148 H Potassium 4.7 Chloride 121 H Carbon Dioxide 17.4 L Anion Gap 10 BUN 68 H Creatinine 3.15 H Estimated GFR 19 L Random Glucose 88 Lactic Acid 2.3 H Calcium 8.1 L Magnesium 1.3 L Total Bilirubin 0.3 AST 26 ALT 18 Alkaline Phosphatase 60 Total Creatine Kinase 37 L Troponin I Less than 0.02 L Total Protein 6.7 Albumin 2.6 L TSH 1.540 Urine Color Urine Clarity Urine pH Ur Specific [place] Urine Protein Urine Glucose (UA) Urine Ketones Urine Occult Blood Urine Nitrate Urine Bilirubin Urine Urobilinogen Ur Leukocyte Esterase Urine RBC Urine WBC Ur Squamous Epith Cells Urine Mucus Micro UA Comment Ur Microscopic Review Urine Culture Comments 10/19/18 10/19/18 10/19/18 16:29 20:11 20:11 WBC RBC Hgb Hct MCV MCH MCHC RDW Plt Count MPV Neut % (Auto) Lymph % (Auto) [place] % (Auto) Eos % (Auto) Baso % (Auto) Neut # (Auto) Lymph # (Auto) [place] # (Auto) Eos # (Auto) Baso # (Auto) WBC Differential Differential Comment Puncture Site Right radial Patient Temperature 98.6 O2 Saturation 95 ABG pH 7.36 L ABG pCO2 25 L ABG pO2 96 ABG HCO3 14 L* ABG O2 Content 14.9 ABG Base Excess -10.8 L ABG Methemoglobin 0.8 Tyrell Test Present Hemoglobin 11.1 L Carboxyhemoglobin 0.9 Inspired O2 21 Critical Value Yes Sodium 149 H Potassium 4.4 Chloride 121 H Carbon Dioxide 13.5 L Anion Gap 15 BUN 63 H Creatinine 2.80 H Estimated GFR 22 L Random Glucose 87 Lactic Acid 1.3 Calcium 7.8 L Magnesium Total Bilirubin AST ALT Alkaline Phosphatase Total Creatine Kinase Troponin I Total Protein Albumin TSH Urine Color Urine Clarity Urine pH Ur Specific [place] Urine Protein Urine Glucose (UA) Urine Ketones Urine Occult Blood Urine Nitrate Urine Bilirubin Urine Urobilinogen Ur Leukocyte Esterase Urine RBC Urine WBC Ur Squamous Epith Cells Urine Mucus Micro UA Comment Ur Microscopic Review Urine Culture Comments 10/20/18 06:00 WBC RBC Hgb Hct MCV MCH MCHC RDW Plt Count MPV Neut % (Auto) Lymph % (Auto) [place] % (Auto) Eos % (Auto) Baso % (Auto) Neut # (Auto) Lymph # (Auto) [place] # (Auto) Eos # (Auto) Baso # (Auto) WBC Differential Differential Comment Puncture Site Patient Temperature O2 Saturation ABG pH ABG pCO2 ABG pO2 ABG HCO3 ABG O2 Content ABG Base Excess ABG Methemoglobin Tyrell Test Hemoglobin Carboxyhemoglobin Inspired O2 Critical Value Sodium Potassium Chloride Carbon Dioxide Anion Gap BUN Creatinine Estimated GFR Random Glucose Lactic Acid Calcium Magnesium Total Bilirubin AST ALT Alkaline Phosphatase Total Creatine Kinase Troponin I Total Protein Albumin TSH Urine Color Yellow Urine Clarity Clear Urine pH 5.0 Ur Specific [place] 1.017 Urine Protein 100 H Urine Glucose (UA) Negative Urine Ketones Negative Urine Occult Blood Negative Urine Nitrate Negative Urine Bilirubin Negative Urine Urobilinogen Less than 2 Ur Leukocyte Esterase Negative Urine RBC 1 Urine WBC 1 Ur Squamous Epith Cells <1 Urine Mucus Few H Micro UA Comment Culture not ind Ur Microscopic Review Not Reportable Urine Culture Comments Culture not ind Microbiology 10/20/18 06:00 Urine - Clean Catch Urine Streptococcus pneumoniae Antigen ( M - Final Presumptive negative for streptococcus pneumoniae antigen, suggesting no current or recent infection. Infection due to Streptococcus pneumoniae cannot be ruled out since the antigen present in the sample may be below the detection limit of the test. 10/20/18 06:00 Urine - Clean Catch Urine Legionella Antigen - Final Presumptive negative for Legionella pneumophila serogroup 1 antigen in urine, suggesting no recent or recurrent infection. Infection due to Legionella cannot be ruled out since other serogroups and species may cause disease, antigen may not be present in urine in early infection, and the level of antigen present in the urine may be below the detection limit of the test. 10/20/18 06:00 Nasal Wash Influenza Types A,B Antigen - Final Negative for FLU A and B antigen Infection due to influenza A or B cannot be ruled out since the antigen present in the sample may be below the detection limit of the test. - Imaging Impressions Chest X-Ray 10/19/18 15:43 CONCLUSION: Mild faint infiltrate in the peripheral aspect of the right upper lung. COPD with chronic interstitial changes. Venous Doppler Study 10/19/18 15:51 CONCLUSION: 1. Negative exam with no evidence of deep venous thrombosis. Assessment and Plan - Plan This is a 73-year-old male with a history of COPD, chronic kidney disease stage III, coronary artery disease, CVA, peripheral artery disease status post carotid surgery, hypertension and hyperlipidemia. Presents with generalized weakness, anorexia, cough and shortness of breath. Chest x-ray with right upper lobe pneumonia. Lactic acid over 2 Sepsis secondary to pneumonia. Continue IV hydration, IV Rocephin and Zithromax blood cultures so far negative sputum culture if obtainable flu screen and Legionella and pneumococcal urinary antigen are negative. Add incentive spirometry DuoNeb's Steroids, taper as tolerated Robitussin Acute on chronic kidney disease stage III with hypomagnesemia secondary to dehydration and sepsis. Continue IV hydration. Avoid nephrotoxins. Replace magnesium with IV magnesium 1 g. Check BMP and magnesium. Replace electrolytes as needed Severe protein calorie malnutrition patient with low albumin, low BMI, cachectic , weak handgrip, muscle wasting and decreased p.o. intake. Ensure and ice cream 3 times a day. Consult dietitian Continue mirtazapine Check orthostatic vital signs DVT prophylaxis with SCD and early ambulation Discussed with the patient and the at bedside. Patient and with multiple questions all answered to the best of my ability. Discharge plan pending improvement.
--- NOTE | 2018-10-20 10:53 | ECG ---
Date Performed: 10/19/2018 Time Performed: 16:02:19 PTAGE: 73 years EKG: Sinus rhythm WITH OCCASIONAL SUPRAVENTRICULAR PREMATURE COMPLEXES POSSIBLE RIGHT VENTRICULAR CONDUCTION DELAY BOR DERLINE ECG PREVIOUS TRACING : 04/04/2015 10.57 No significant change from previous tracing noted. DOCTOR: Wilmer Woodruff Interpretating Date/Time 10/20/2018 10:52:34
[2018-10-20] MEDS: Pantoprazole Sodium 20 MG DR Tablet PO SCH (11:17)
[2018-10-20] MEDS: Ferrous Sulfate 325 MG Tablet PO SCH (11:17)
[2018-10-20] MEDS: Calcitriol 0.25 MCG Capsule PO SCH (11:17)
[2018-10-20] MEDS: Mirtazapine 15 MG Tablet PO SCH (11:17)
[2018-10-20] MEDS: Megestrol Acetate Liq 400 MG/10 ML UDC PO SCH (11:18)
[2018-10-20] MEDS: Sod Chloride 0.9% Inj 1,000 ML IV.CONT SCH (11:27)
[2018-10-20 12:52] LABS: Baso % (Auto) 0.1 % (0.0-2.0); Hematocrit 27.7 % (39.0-51.0); Hemoglobin 8.9 gm/dL (13.0-17.0); Lymph # (Auto) 0.6 th/mm3 (1.0-4.8); Mean Corpuscular HGB Conc 32.3 % (32.0-36.0); Mean Corpuscular Hemoglobin 30.3 pg (27.0-34.0); Mean Corpuscular Volume 93.9 fL (80.0-100.0); Mean Platelet Volume 9.4 fL (7.0-11.0); Mono # (Auto) 0.2 th/mm3 (0.0-0.9); Mono % (Auto) 1.3 % (0.0-8.0); Neut # (Auto) 10.9 th/mm3 (1.8-7.7); Neut % (Auto) 93.6 % (16.0-70.0); Platelet Count 187 th/mm3 (150-450); Red Blood Count 2.95 mil/mm3 (4.50-5.90); White Blood Count 11.6 th/mm3 (4.0-11.0)
[2018-10-20 13:16] LABS: Calcium 7.8 mg/dL (8.5-10.1); Carbon Dioxide 15.8 meq/L (21.0-32.0); Potassium 4.1 meq/L (3.5-5.1)
[2018-10-20] MEDS: Azithromycin Inj 500 MG in Sodium Chlor 0.9% Inj 250 ML IV.SIG SCH (17:15)
[2018-10-20] MEDS: Magnesium Oxide 400 MG Tablet PO SCH (23:25)
[2018-10-20] MEDS: Sodium Chloride 0.45 % Inj 1,000 ML IV.CONT SCH (23:25)
[2018-10-20] MEDS: Melatonin 5 MG Tablet PO PRN (23:39)
[2018-10-21] MEDS: Heparin - SQ 10,000 UNITS/ML Vial SQ SCH ×3 (04:39→17:25)
[2018-10-21] MEDS: MethylPREDNISolone Sod Succinate Inj 40 MG/ML Vial IV.PUSH SCH ×2 (04:40→17:26)
[2018-10-21] MEDS: Sod Chloride 0.9% Inj 1,000 ML IV.CONT SCH ×2 (04:43→20:28)
[2018-10-21] MEDS: Sodium Chloride 0.45 % Inj 1,000 ML IV.CONT SCH ×3 (04:46→17:27)
[2018-10-21 06:16] LABS: Baso % (Auto) 0.2 % (0.0-2.0); Hematocrit 24.7 % (39.0-51.0); Hemoglobin 8.1 gm/dL (13.0-17.0); Lymph # (Auto) 0.6 th/mm3 (1.0-4.8); Lymph % (Auto) 4.8 % (9.0-44.0); Mean Corpuscular HGB Conc 32.9 % (32.0-36.0); Mean Corpuscular Hemoglobin 30.5 pg (27.0-34.0); Mean Corpuscular Volume 92.8 fL (80.0-100.0); Mono # (Auto) 0.3 th/mm3 (0.0-0.9); Mono % (Auto) 2.9 % (0.0-8.0); Neut # (Auto) 10.6 th/mm3 (1.8-7.7); Neut % (Auto) 92.1 % (16.0-70.0); Platelet Count 167 th/mm3 (150-450); Red Blood Count 2.66 mil/mm3 (4.50-5.90); Red Cell Distribution Width 16.6 % (11.6-17.2); White Blood Count 11.5 th/mm3 (4.0-11.0)
[2018-10-21 06:41] LABS: Calcium 8.1 mg/dL (8.5-10.1); Carbon Dioxide 16.1 meq/L (21.0-32.0); Magnesium 1.7 mg/dL (1.5-2.5); Potassium 4.2 meq/L (3.5-5.1)
[2018-10-21] MEDS: Megestrol Acetate Liq 400 MG/10 ML UDC PO SCH (10:58)
[2018-10-21] MEDS: Calcitriol 0.25 MCG Capsule PO SCH (11:01)
[2018-10-21] MEDS: Magnesium Oxide 400 MG Tablet PO SCH (11:01)
[2018-10-21] MEDS: Ferrous Sulfate 325 MG Tablet PO SCH (11:02)
[2018-10-21] MEDS: Mirtazapine 15 MG Tablet PO SCH (11:07)
[2018-10-21] MEDS: Pantoprazole Sodium 20 MG DR Tablet PO SCH (11:07)
--- NOTE | 2018-10-21 15:42 | P.PN ---
Subjective Interval history: In bed appears weak. Has some cough with sputum production of yellow/dark green/ brown sputum. No fever or chills. No chest pain . Still not eating much, says has no appetite and also doesn't like the food. Says he wants to go home with home health at [place] and not to a rehab Physical Exam Vital signs: Vital Signs 10/20/18 16:00 10/20/18 16:48 10/20/18 20:00 Temperature 98.6 F 97.9 F Pulse Rate 94 H 74 97 H Respiratory Rate 22 18 16 Blood Pressure 165/68 H 139/60 Pulse Oximetry 98 97 10/20/18 22:18 10/21/18 00:00 10/21/18 03:49 Temperature 98.0 F Pulse Rate 97 H 100 H 98 H Respiratory Rate 16 16 16 Blood Pressure 148/61 H Pulse Oximetry 94 L 94 L 10/21/18 04:00 10/21/18 08:00 10/21/18 08:33 Temperature 97.7 F Pulse Rate 100 H 122 H 101 H Respiratory Rate 17 22 Blood Pressure 141/62 H Pulse Oximetry 97 96 96 10/21/18 12:00 Temperature 97.7 F Pulse Rate 104 H Respiratory Rate 18 Blood Pressure 145/61 H Pulse Oximetry 98 Intake & Output 10/20/18 10/21/18 10/21/18 18:59 06:59 18:59 Intake Total 1720 / 1720 1330 / 1330 1000 / 1000 Output Total 200 / 200 1200 / 1200 Balance 1520 / 1520 130 / 130 1000 / 1000 Weight 56.8 kg Intake: IV 1000 / 1000 650 / 650 1000 / 1000 NS Inj 1,000 ML @ 60 mls/hr IV. 1000 / 1000 300 / 300 CONT .[id number] SELAM Rx#:[id number] 1/2 Normal Saline Inj 1,000 ML 1000 / 1000 @ 100 mls/hr IV.CONT .Q10H SELAM Rx#:[id number] Azithromycin Inj 500 MG In NS 250 / 250 Inj 250 ML @ 250 mls/hr IV.SIG Q24H SELAM Rx#:[id number] Rocephin Inj 1,000 MG In NS Inj 100 / 100 100 ML @ 200 mls/hr IV.SIG Q24H SELAM Rx#:[id number] Oral 720 / 720 680 / 680 Output: Urine 200 / 200 1200 / 1200 Other: # Voids 2 3 Date of Last Bowel Movement 10/20/18 # Bowel Movements 3 Narrative: GENERAL: The patient is a elderly 73-year-old male, cachectic, appearing chronically ill. SKIN: pale. CARDIOVASCULAR: Normal s1 and s2 RESPIRATORY: No accessory muscle use. Decreased breath sounds equal bilaterally. No wheezing. GASTROINTESTINAL: Abdomen soft, non-tender, nondistended. MUSCULOSKELETAL: Muscle wasting. Extremities without clubbing, cyanosis, or edema. No obvious deformities. NEUROLOGICAL: Awake and alert. No obvious cranial nerve deficits. Motor grossly within normal limits. Weak handgrip. Normal speech. PSYCHIATRIC: Appropriate mood and affect; insight and judgment normal. Results - Labs CBC & Chem 7: 10/21/18 05:55 10/21/18 05:55 Laboratory Results - last 24 hr 10/21/18 10/21/18 05:55 05:55 WBC 11.5 H RBC 2.66 L Hgb 8.1 L Hct 24.7 L MCV 92.8 MCH 30.5 MCHC 32.9 RDW 16.6 Plt Count 167 MPV 9.0 Neut % (Auto) 92.1 H Lymph % (Auto) 4.8 L [place] % (Auto) 2.9 Eos % (Auto) 0.0 Baso % (Auto) 0.2 Neut # (Auto) 10.6 H Lymph # (Auto) 0.6 L [place] # (Auto) 0.3 Eos # (Auto) 0.0 Baso # (Auto) 0.0 WBC Differential . Differential Comment Auto diff final Sodium 152 H Potassium 4.2 Chloride 125 H Carbon Dioxide 16.1 L Anion Gap 11 BUN 50 H Creatinine 2.23 H Estimated GFR 29 L Random Glucose 119 H Calcium 8.1 L Magnesium 1.7 Microbiology 10/19/18 Unknown Sputum - Expectorated Sputum Gram Stain - Final 10/19/18 Unknown Sputum - Expectorated Sputum Sputum Culture - Preliminary gram negative rods 10/19/18 15:57 Blood - Peripheral Aerobic Blood Culture - Preliminary No growth in 2 days 10/19/18 15:57 Blood - Peripheral Anaerobic Blood Culture - Preliminary No growth in 2 days 10/19/18 15:52 Blood - Peripheral Aerobic Blood Culture - Preliminary No growth in 2 days 10/19/18 15:52 Blood - Peripheral Anaerobic Blood Culture - Preliminary No growth in 2 days Assessment and Plan - Plan This is a 73-year-old male with a history of COPD, chronic kidney disease stage III, coronary artery disease, CVA, peripheral artery disease status post carotid surgery, hypertension and hyperlipidemia. Presents with generalized weakness, anorexia, cough and shortness of breath. Chest x-ray with right upper lobe pneumonia. Lactic acid over 2 Sepsis secondary to pneumonia. Continue IV hydration, IV Rocephin and Zithromax blood cultures so far negative sputum culture if obtainable flu screen and Legionella and pneumococcal urinary antigen are negative. Add incentive spirometry DuoNeb's Steroids, taper as tolerated Robitussin Acute on chronic kidney disease stage III with hypomagnesemia secondary to dehydration and sepsis. Continue IV hydration. Avoid nephrotoxins. Replace magnesium with IV magnesium 1 g. Check BMP and magnesium. Replace electrolytes as needed Hypernatremia: change IVF to 1/2 NS and monitor lytes Severe protein calorie malnutrition patient with low albumin, low BMI, cachectic , weak handgrip, muscle wasting and decreased p.o. intake. Ensure and ice cream 3 times a day. Consult dietitian Continue mirtazapine Check orthostatic vital signs DVT prophylaxis with SCD and early ambulation Discussed with the patient and the at bedside. Patient and with multiple questions all answered to the best of my ability. Discharge plan pending improvement.
[2018-10-21] MEDS: Azithromycin Inj 500 MG in Sodium Chlor 0.9% Inj 250 ML IV.SIG SCH (17:26)
[2018-10-21] MEDS: Melatonin 5 MG Tablet PO PRN (20:30)
[2018-10-22] MEDS: Sodium Chloride 0.45 % Inj 1,000 ML IV.CONT SCH ×3 (02:43→20:33)
[2018-10-22] MEDS: Heparin - SQ 10,000 UNITS/ML Vial SQ SCH ×3 (02:43→16:55)
[2018-10-22] MEDS: MethylPREDNISolone Sod Succinate Inj 40 MG/ML Vial IV.PUSH SCH ×2 (05:26→16:57)
[2018-10-22 07:56] LABS: Baso % (Auto) 0.2 % (0.0-2.0); Hematocrit 23.9 % (39.0-51.0); Hemoglobin 7.8 gm/dL (13.0-17.0); Lymph # (Auto) 0.5 th/mm3 (1.0-4.8); Mean Corpuscular HGB Conc 32.5 % (32.0-36.0); Mean Corpuscular Hemoglobin 30.6 pg (27.0-34.0); Mean Corpuscular Volume 94.2 fL (80.0-100.0); Mono # (Auto) 0.3 th/mm3 (0.0-0.9); Mono % (Auto) 3.4 % (0.0-8.0); Neut # (Auto) 8.4 th/mm3 (1.8-7.7); Neut % (Auto) 91.4 % (16.0-70.0); Platelet Count 161 th/mm3 (150-450); Red Blood Count 2.53 mil/mm3 (4.50-5.90); Red Cell Distribution Width 17.2 % (11.6-17.2); White Blood Count 9.2 th/mm3 (4.0-11.0)
[2018-10-22 08:21] LABS: Calcium 8.4 mg/dL (8.5-10.1); Potassium 4.4 meq/L (3.5-5.1)
[2018-10-22] MEDS: Megestrol Acetate Liq 400 MG/10 ML UDC PO SCH (08:38)
[2018-10-22] MEDS: Mirtazapine 15 MG Tablet PO SCH (08:39)
[2018-10-22] MEDS: Ferrous Sulfate 325 MG Tablet PO SCH (08:40)
[2018-10-22] MEDS: Pantoprazole Sodium 20 MG DR Tablet PO SCH (08:40)
[2018-10-22] MEDS: Magnesium Oxide 400 MG Tablet PO SCH (08:41)
[2018-10-22] MEDS: Calcitriol 0.25 MCG Capsule PO SCH (08:41)
[2018-10-22 08:45] LABS: Lymphocytes 6 % (9-44); Metamyelocytes 1 % (0-1); Monocytes 2 % (0-8)
[2018-10-22 08:47] LABS: Platelet Estimate Normal (Normal); Platelet Morphology Normal (Normal); RBC Morphology Normal (Normal)
--- NOTE | 2018-10-22 11:56 | P.DCO ---
- Diagnosis (1) Sepsis Status: Acute (2) Pneumonia Status: Acute (3) Acute kidney injury Status: Acute - Physical Therapy Order: Evaluate and treat - Home Health Nursing Order: Medical education, Signs/symptoms of disease process, Medication education-adverse effect, Nursing assessment with vital signs - Case Management Consult Case Management Consult-Home Health: Yes - Certification I have seen patient Hussein Meeks on 10/22/18. My clinical findings support the need for the requested home health care services because: Limited mobility due to disease progression, Patient has SOB, Deconditioned with increased weakness I certify that my clinical findings support that this patient is homebound because: Post-op weakness, Hx COPD - exertion dyspnea/weakness
--- NOTE | 2018-10-22 11:56 | P.PN ---
Subjective Interval history: In bed appears tired and acutely ill. Not eating much no appetite. No nausea. Coughing yellow brownish sputum. Feels congested. No chest pain. With some shortness of breath. Physical Exam Vital signs: Vital Signs 10/21/18 12:00 10/21/18 16:00 10/21/18 16:14 Temperature 97.7 F 97.8 F Pulse Rate 104 H 112 H 105 H Respiratory Rate 18 17 20 Blood Pressure 145/61 H 203/126 H Pulse Oximetry 98 99 10/21/18 20:00 10/21/18 20:37 10/21/18 23:55 Temperature 97.9 F Pulse Rate 96 H 101 H 103 H Respiratory Rate 20 18 Blood Pressure 167/74 H Pulse Oximetry 98 97 10/22/18 00:00 10/22/18 03:28 10/22/18 04:00 Temperature 97.7 F 97.7 F Pulse Rate 102 H 88 91 H Respiratory Rate 20 16 20 Blood Pressure 150/62 H 159/70 H Pulse Oximetry 98 98 10/22/18 08:00 10/22/18 09:50 Temperature 97.7 F Pulse Rate 100 H 100 H Respiratory Rate 22 20 Blood Pressure 171/79 H Pulse Oximetry 98 Intake & Output 10/21/18 10/22/18 10/22/18 18:59 06:59 18:59 Intake Total 2930 / 2930 1240 / 1240 1000 / 1000 Output Total 200 / 200 300 / 300 Balance 2730 / 2730 940 / 940 1000 / 1000 Weight 56.5 kg Intake: IV 2250 / 2250 1000 / 1000 1000 / 1000 1/2 Normal Saline Inj 1,000 ML 2000 / 2000 1000 / 1000 1000 / 1000 @ 100 mls/hr IV.CONT .Q10H SELAM Rx#:[id number] Azithromycin Inj 500 MG In NS 250 / 250 Inj 250 ML @ 250 mls/hr IV.SIG Q24H SELAM Rx#:[id number] Oral 680 / 680 240 / 240 Output: Urine 200 / 200 300 / 300 Other: # Voids 3 # Incontinent Voids 2 Date of Last Bowel Movement 10/20/18 # Bowel Movements 3 Narrative: GENERAL: The patient is a elderly 73-year-old male, cachectic, appearing chronically ill. SKIN: pale. CARDIOVASCULAR: Normal s1 and s2 RESPIRATORY: No accessory muscle use. Decreased breath sounds equal bilaterally. No wheezing. GASTROINTESTINAL: Abdomen soft, non-tender, nondistended. MUSCULOSKELETAL: Muscle wasting. Extremities without clubbing, cyanosis, or edema. No obvious deformities. NEUROLOGICAL: Awake and alert. No obvious cranial nerve deficits. Motor grossly within normal limits. Weak handgrip. Normal speech. PSYCHIATRIC: Appropriate mood and affect; insight and judgment normal. Results - Labs CBC & Chem 7: 10/22/18 07:29 10/22/18 07:29 Laboratory Results - last 24 hr 10/22/18 10/22/18 07:29 07:29 WBC 9.2 RBC 2.53 L Hgb 7.8 L Hct 23.9 L MCV 94.2 MCH 30.6 MCHC 32.5 RDW 17.2 Plt Count 161 MPV 9.0 Prelim Diff (Auto) Slide review pending Neut % (Auto) 91.4 H Lymph % (Auto) 5.0 L [place] % (Auto) 3.4 Eos % (Auto) 0.0 Baso % (Auto) 0.2 Neut # (Auto) 8.4 H Lymph # (Auto) 0.5 L [place] # (Auto) 0.3 Eos # (Auto) 0.0 Baso # (Auto) 0.0 WBC Differential Manual diff final Seg Neuts % (Manual) 90 H Band Neuts % (Manual) 1 Lymphocytes % (Manual) 6 L Monocytes % (Manual) 2 Metamyelocytes % (Man) 1 Abs Neuts (Manual) 8.5 H Differential Comment . Platelet Estimate Normal Platelet Morphology Normal RBC Morphology Normal Sodium 148 H Potassium 4.4 Chloride 122 H Carbon Dioxide 19.0 L Anion Gap 7 BUN 39 H Creatinine 1.93 H Estimated GFR 34 L Random Glucose 100 Calcium 8.4 L Microbiology 10/19/18 15:57 Blood - Peripheral Aerobic Blood Culture - Preliminary No growth in 3 days 10/19/18 15:57 Blood - Peripheral Anaerobic Blood Culture - Preliminary No growth in 3 days 10/19/18 15:52 Blood - Peripheral Aerobic Blood Culture - Preliminary No growth in 3 days 10/19/18 15:52 Blood - Peripheral Anaerobic Blood Culture - Preliminary No growth in 3 days 10/19/18 Unknown Sputum - Expectorated Sputum Gram Stain - Final 10/19/18 Unknown Sputum - Expectorated Sputum Sputum Culture - Preliminary gram negative rods Assessment and Plan - Plan This is a 73-year-old male with a history of COPD, chronic kidney disease stage III, coronary artery disease, CVA, peripheral artery disease status post carotid surgery, hypertension and hyperlipidemia. Presents with generalized weakness, anorexia, cough and shortness of breath. Chest x-ray with right upper lobe pneumonia. Lactic acid over 2 Sepsis secondary to pneumonia. Continue IV hydration, IV Rocephin and Zithromax blood cultures so far negative sputum culture if obtainable flu screen and Legionella and pneumococcal urinary antigen are negative. Add incentive spirometry DuoNeb's Steroids, taper as tolerated Robitussin Add Acapella. Acute on chronic kidney disease stage III with hypomagnesemia secondary to dehydration and sepsis. Continue IV hydration. Avoid nephrotoxins. Replace magnesium with IV magnesium 1 g. Check BMP and magnesium. Replace electrolytes as needed Hypernatremia: change IVF to 1/2 NS and monitor lytes Severe protein calorie malnutrition patient with low albumin, low BMI, cachectic , weak handgrip, muscle wasting and decreased p.o. intake. Ensure and ice cream 3 times a day. Consult dietitian Continue mirtazapine Check orthostatic vital signs DVT prophylaxis with SCD and early ambulation Discussed with the patient and the at bedside. Patient and with multiple questions all answered to the best of my ability. Discharge plan pending improvement.
[2018-10-22 12:37] LABS: % Iron Saturation 16.1 % (20-50)
[2018-10-22] MEDS: Sod Chloride 0.9% Inj 1,000 ML IV.CONT SCH (13:16)
--- NOTE | 2018-10-22 15:55 | P.DS ---
Date of admission: 10/19/18 17:34 Primary care physician: UNKNOWN Brief History from admission: This is a 73-year-old male with a history of COPD, chronic kidney disease stage III, coronary artery disease, CVA, peripheral artery disease status post carotid surgery, hypertension and hyperlipidemia. States he has been feeling poorly for the past several weeks with anorexia and generalized weakness. According to his he has not been eating adequately for the past several days. He denies dizziness. He also reports of productive coughing with thick phlegm and shortness of breath with wheezing denies fever or chills. Because of financial constraints, he has discontinued his steroid inhaler. In the emergency department, patient was found to be septic with pneumonia and received 1 L fluid bolus, IV Rocephin and Zithromax and IV steroids. He also has worsening kidney function. All other systems reviewed negative. Please note patient is a poor historian. Chest x-ray independently reviewed by me with COPD with chronic interstitial changes and mild infiltrate in the right upper lobe. EKG shows NSR, no ST elevation or depression, and no arrhythmias. No significant T-wave inversions. EKG independently reviewed reviewed by me with sinus tachycardia DS: Medications - Discharge Medications Prescriptions: Lactobacillus acidoph-L.bulgar [Lactinex] 1 tab PO DAILY #30 tab levofloxacin [Levaquin] 750 mg PO DAILY #10 tab DS: Summary Hospital Course: This is a 73-year-old male with a history of COPD, chronic kidney disease stage III, coronary artery disease, CVA, peripheral artery disease status post carotid surgery, hypertension and hyperlipidemia. Presents with generalized weakness, anorexia, cough and shortness of breath. Chest x-ray with right upper lobe pneumonia. Lactic acid over 2 Sepsis secondary to pneumonia. Continue IV hydration, IV Rocephin and Zithromax blood cultures so far negative sputum culture with pseudomonas aeruginosa. DC on levaquin PO flu screen and Legionella and pneumococcal urinary antigen are negative. Add incentive spirometry DuoNeb's Steroids, tapered Robitussin Add Acapella. - With pseudomonas aeruginosa in the sputum, give Levaquin as OP PO. Blood cultures neg to date Acute on chronic kidney disease stage III with hypomagnesemia secondary to dehydration and sepsis. Continue IV hydration. Avoid nephrotoxins. Replace magnesium with IV magnesium 1 g. Check BMP and magnesium. Replace electrolytes as needed Kidney function imprpved at his baseline. Hypernatremia: change IVF to 1/2 NS and monitor lytes Severe protein calorie malnutrition patient with low albumin, low BMI, cachectic , weak handgrip, muscle wasting and decreased p.o. intake. Ensure and ice cream 3 times a day. Consult dietitian Continue mirtazapine Iron deficiency anemia: venofer IV x 2 Also with low B12 received B12 x1 IM MVT Check orthostatic vital signs Patient improved . PT recommends rehab. DC to rehab in stable condition however expect frequent hospitalizations. Patient is weak. To follow up as OP with PCP and consultants. - Time Spent with Patient Total time spent providing and/or coordinating discharge services: Greater than 30 minutes - Quality: VTE Deep Vein Thrombosis/Pulmonary Embolism Present on Admission: No Exam Vital signs: Vital Signs 10/21/18 16:00 10/21/18 16:14 10/21/18 20:00 Temperature 97.8 F 97.9 F Pulse Rate 112 H 105 H 96 H Respiratory Rate 17 20 20 Blood Pressure 203/126 H 167/74 H Pulse Oximetry 99 98 10/21/18 20:37 10/21/18 23:55 10/22/18 00:00 Temperature 97.7 F Pulse Rate 101 H 103 H 102 H Respiratory Rate 18 20 Blood Pressure 150/62 H Pulse Oximetry 97 98 10/22/18 03:28 10/22/18 04:00 10/22/18 08:00 Temperature 97.7 F 97.7 F Pulse Rate 88 91 H 100 H Respiratory Rate 16 20 22 Blood Pressure 159/70 H 171/79 H Pulse Oximetry 98 98 10/22/18 09:50 10/22/18 12:00 Temperature 97.7 F Pulse Rate 100 H 97 H Respiratory Rate 20 22 Blood Pressure 160/76 H Pulse Oximetry 96 Intake & Output 10/21/18 10/22/18 10/22/18 18:59 06:59 18:59 Intake Total 2930 / 2930 1240 / 1240 1000 / 1000 Output Total 200 / 200 300 / 300 Balance 2730 / 2730 940 / 940 1000 / 1000 Weight 56.5 kg Intake: IV 2250 / 2250 1000 / 1000 1000 / 1000 1/2 Normal Saline Inj 1,000 ML 2000 / 2000 1000 / 1000 1000 / 1000 @ 100 mls/hr IV.CONT .Q10H SELAM Rx#:[id number] Azithromycin Inj 500 MG In NS 250 / 250 Inj 250 ML @ 250 mls/hr IV.SIG Q24H SELAM Rx#:[id number] Oral 680 / 680 240 / 240 Output: Urine 200 / 200 300 / 300 Other: # Voids 3 # Incontinent Voids 2 Date of Last Bowel Movement 10/20/18 # Bowel Movements 3 Narrative: GENERAL: The patient is a elderly 73-year-old male, cachectic, appearing chronically ill. SKIN: pale. CARDIOVASCULAR: Normal s1 and s2 RESPIRATORY: No accessory muscle use. Decreased breath sounds equal bilaterally. No wheezing. GASTROINTESTINAL: Abdomen soft, non-tender, nondistended. MUSCULOSKELETAL: Muscle wasting. Extremities without clubbing, cyanosis, or edema. No obvious deformities. NEUROLOGICAL: Awake and alert. No obvious cranial nerve deficits. Motor grossly within normal limits. Weak handgrip. Normal speech. PSYCHIATRIC: Appropriate mood and affect; insight and judgment normal. Results Procedures completed during hospitalization: no procedures Labs on day of discharge: Labs from last 24 hours 10/22/18 10/22/18 10/22/18 07:29 07:29 07:29 WBC 9.2 RBC 2.53 L Hgb 7.8 L Hct 23.9 L MCV 94.2 MCH 30.6 MCHC 32.5 RDW 17.2 Plt Count 161 MPV 9.0 Prelim Diff (Auto) Slide review pending Neut % (Auto) 91.4 H Lymph % (Auto) 5.[address] [place] % (Auto) 3.4 Eos % (Auto) 0.0 Baso % (Auto) 0.2 Neut # (Auto) 8.4 H Lymph # (Auto) 0.[address] [place] # (Auto) 0.3 Eos # (Auto) 0.0 Baso # (Auto) 0.0 WBC Differential Manual diff final Seg Neuts % (Manual) 90 H Band Neuts % (Manual) 1 Lymphocytes % (Manual) 6 L Monocytes % (Manual) 2 Metamyelocytes % (Man) 1 Abs Neuts (Manual) 8.5 H Differential Comment . Platelet Estimate Normal Platelet Morphology Normal RBC Morphology Normal Sodium 148 H Potassium 4.4 Chloride 122 H Carbon Dioxide 19.0 L Anion Gap 7 BUN 39 H Creatinine 1.93 H Estimated GFR 34 L Random Glucose 100 Calcium 8.4 L Iron 33 L TIBC 204 L % Saturation 16.1 L Ferritin 73 Vitamin B12 300 Vitamin D 25-Hydroxy 35.0 Folate 15.0 Preliminary micro results at discharge 10/19/18 15:57 Aerobic Blood Culture - Preliminary Blood - Peripheral No growth in 3 days Anaerobic Blood Culture - Preliminary No growth in 3 days 10/19/18 15:52 Aerobic Blood Culture - Preliminary Blood - Peripheral No growth in 3 days Anaerobic Blood Culture - Preliminary No growth in 3 days - Impressions ITS Impressions Chest X-Ray 10/19/18 15:43 CONCLUSION: Mild faint infiltrate in the peripheral aspect of the right upper lung. COPD with chronic interstitial changes. Venous Doppler Study 10/19/18 15:51 CONCLUSION: 1. Negative exam with no evidence of deep venous thrombosis. Discharge Plan - Discharge Disposition Patient Disposition: /Home Health Service - Discharge Condition Condition: Stable - Discharge Order Discharge Orders: Discharge Order (Routine); Ordered 10/23/18 Ordered By: Imani Huggins - Discharge Details Anticipated Discharge Date: 10/23/18 - Physicians Team Primary Care Provider: UNKNOWN, Attending Provider: Imani Huggins Other Providers: [facility],[employer] ; [facility],Agency
[2018-10-22] MEDS ORDERED: Iron Sucrose Inj 100 MG/5 ML Vial IV.PUSH SCH (17:00)
[2018-10-22] MEDS ORDERED: Iron Sucrose Inj 200 MG in Sodium Chlor 0.9% Inj 100 ML IV.SIG ONE (17:00)
[2018-10-22] MEDS: Azithromycin Inj 500 MG in Sodium Chlor 0.9% Inj 250 ML IV.SIG SCH (17:50)
[2018-10-23] MEDS: Heparin - SQ 10,000 UNITS/ML Vial SQ SCH ×3 (01:28→17:50)
[2018-10-23] MEDS ORDERED: Iron Sucrose Inj 200 MG in Sodium Chlor 0.9% Inj 100 ML IV.SIG ONE (02:00)
[2018-10-23] MEDS ORDERED: Iron Sucrose Inj 100 MG/5 ML Vial IV.PUSH SCH (02:00)
[2018-10-23] MEDS: MethylPREDNISolone Sod Succinate Inj 40 MG/ML Vial IV.PUSH SCH (05:48)
[2018-10-23] MEDS: Sod Chloride 0.9% Inj 1,000 ML IV.CONT SCH (05:49)
[2018-10-23] MEDS: Sodium Chloride 0.45 % Inj 1,000 ML IV.CONT SCH ×3 (05:49→17:52)
[2018-10-23] MEDS: Pantoprazole Sodium 20 MG DR Tablet PO SCH (10:02)
[2018-10-23] MEDS: Ferrous Sulfate 325 MG Tablet PO SCH (10:03)
[2018-10-23] MEDS: Magnesium Oxide 400 MG Tablet PO SCH (10:03)
[2018-10-23] MEDS: Calcitriol 0.25 MCG Capsule PO SCH (10:03)
[2018-10-23] MEDS: Mirtazapine 15 MG Tablet PO SCH (10:03)
[2018-10-23] MEDS: Megestrol Acetate Liq 400 MG/10 ML UDC PO SCH (10:04)
[2018-10-23 15:26] LABS: Hematocrit 22.9 % (39.0-51.0); Hemoglobin 7.8 gm/dL (13.0-17.0); Lymph % (Auto) 8.6 % (9.0-44.0); Mean Corpuscular HGB Conc 33.9 % (32.0-36.0); Mean Corpuscular Hemoglobin 31.3 pg (27.0-34.0); Mean Corpuscular Volume 92.2 fL (80.0-100.0); Mean Platelet Volume 9.1 fL (7.0-11.0); Mono # (Auto) 0.9 th/mm3 (0.0-0.9); Mono % (Auto) 7.3 % (0.0-8.0); Neut # (Auto) 9.9 th/mm3 (1.8-7.7); Neut % (Auto) 84.1 % (16.0-70.0); Platelet Count 147 th/mm3 (150-450); Red Blood Count 2.48 mil/mm3 (4.50-5.90); Red Cell Distribution Width 16.8 % (11.6-17.2); White Blood Count 11.7 th/mm3 (4.0-11.0)
[2018-10-23 15:57] LABS: Calcium 8.2 mg/dL (8.5-10.1); Carbon Dioxide 18.9 meq/L (21.0-32.0); Lymphocytes 5 % (9-44); Monocytes 3 % (0-8); Potassium 4.2 meq/L (3.5-5.1); Tallied Nucleated RBC 2 (0-0)
[2018-10-23 15:58] LABS: Acanthocytes Occ; Platelet Estimate Normal (Normal); Platelet Morphology Normal (Normal)
--- NOTE | 2018-10-23 17:35 | P.PN ---
Subjective Interval history: Patient is in bed he appears weak, he needs to person assist to get out of the bed. He however still wants to go home however he is still very weak. Discussed with the patient and with the at bedside at length patient decided to go to rehab. Case management is following for discharge plan. Patient says is not eating much since he is in the eights more if he has food from home. Says he does not like the food here. Appetite is coming back. No much cough. No fever or chills overnight. Physical Exam Vital signs: Vital Signs 10/22/18 20:00 10/22/18 20:19 10/23/18 00:00 Temperature 97.7 F 97.5 F L Pulse Rate 87 90 89 Respiratory Rate 18 16 18 Blood Pressure 166/75 H 177/74 H Pulse Oximetry 94 L 92 L 92 L 10/23/18 03:19 10/23/18 08:00 10/23/18 10:30 Temperature 97.7 F Pulse Rate 95 H 99 H 101 H Respiratory Rate 16 15 20 Blood Pressure 208/89 H Pulse Oximetry 94 L 95 10/23/18 12:00 10/23/18 15:48 Temperature 98.3 F Pulse Rate 97 H 92 H Respiratory Rate 16 16 Blood Pressure 164/74 H Pulse Oximetry 93 L Intake & Output 10/22/18 10/23/18 10/23/18 18:59 06:59 18:59 Intake Total 2060 / 2060 2110 / 2110 1000 / 1000 Output Total 650 / 650 Balance 1410 / 1410 2110 / 2110 1000 / 1000 Weight 60.4 kg Intake: IV 1360 / 1360 2110 / 2110 1000 / 1000 1/2 Normal Saline Inj 1,000 ML 1000 / 1000 2000 / 2000 1000 / 1000 @ 100 mls/hr IV.CONT .Q10H SELAM Rx#:[id number] Azithromycin Inj 500 MG In NS 250 / 250 Inj 250 ML @ 250 mls/hr IV.SIG Q24H SELAM Rx#:[id number] Venofer Inj 200 MG In NS Inj 110 / 110 110 / 110 100 ML @ 220 mls/hr IV.SIG ONCE ONE Rx#:[id number] Oral 700 / 700 Output: Urine 650 / 650 Other: # Voids 1 4 # Bowel Movements 2 Narrative: GENERAL: The patient is a elderly 73-year-old male, cachectic, appearing chronically ill. SKIN: pale. CARDIOVASCULAR: Normal s1 and s2 RESPIRATORY: No accessory muscle use. Decreased breath sounds equal bilaterally. No wheezing. GASTROINTESTINAL: Abdomen soft, non-tender, nondistended. MUSCULOSKELETAL: Muscle wasting. Extremities without clubbing, cyanosis, or edema. No obvious deformities. NEUROLOGICAL: Awake and alert. No obvious cranial nerve deficits. Motor grossly within normal limits. Weak handgrip. Normal speech. PSYCHIATRIC: Appropriate mood and affect; insight and judgment normal. Results - Labs CBC & Chem 7: 10/23/18 14:47 10/23/18 14:47 Laboratory Results - last 24 hr 10/23/18 10/23/18 14:47 14:47 WBC 11.7 H RBC 2.48 L Hgb 7.8 L Hct 22.9 L MCV 92.2 MCH 31.3 MCHC 33.9 RDW 16.8 Plt Count 147 L MPV 9.1 Prelim Diff (Auto) Slide review pending Neut % (Auto) 84.1 H Lymph % (Auto) 8.6 L [place] % (Auto) 7.3 Eos % (Auto) 0.0 Baso % (Auto) 0.0 Neut # (Auto) 9.9 H Lymph # (Auto) 1.0 [place] # (Auto) 0.9 Eos # (Auto) 0.0 Baso # (Auto) 0.0 WBC Differential Manual diff final Seg Neuts % (Manual) 91 H Band Neuts % (Manual) 1 Lymphocytes % (Manual) 5 L Monocytes % (Manual) 3 Abs Neuts (Manual) 10.8 H Nucleated RBCs/100 WBC 2 H Differential Comment . Platelet Estimate Normal Platelet Morphology Normal Acanthocytes (Spur) Occ H Sodium 142 Potassium 4.2 Chloride 116 H Carbon Dioxide 18.9 L Anion Gap 7 BUN 34 H Creatinine 1.75 H Estimated GFR 38 L Random Glucose 73 L Calcium 8.2 L Microbiology 10/19/18 15:57 Blood - Peripheral Aerobic Blood Culture - Preliminary No growth in 4 days 10/19/18 15:57 Blood - Peripheral Anaerobic Blood Culture - Preliminary No growth in 4 days 10/19/18 15:52 Blood - Peripheral Aerobic Blood Culture - Preliminary No growth in 4 days 10/19/18 15:52 Blood - Peripheral Anaerobic Blood Culture - Preliminary No growth in 4 days - Procedures no procedures Assessment and Plan - Plan This is a 73-year-old male with a history of COPD, chronic kidney disease stage III, coronary artery disease, CVA, peripheral artery disease status post carotid surgery, hypertension and hyperlipidemia. Presents with generalized weakness, anorexia, cough and shortness of breath. Chest x-ray with right upper lobe pneumonia. Lactic acid over 2 Sepsis secondary to pneumonia. Continue IV hydration, IV Rocephin and Zithromax blood cultures so far negative sputum culture with pseudomonas aeruginosa pansensitive. Change antibiotics to Levaquin at discharge. flu screen and Legionella and pneumococcal urinary antigen are negative. Add incentive spirometry DuoNeb's Steroids, taper as tolerated Robitussin Add Acapella. Acute on chronic kidney disease stage III with hypomagnesemia secondary to dehydration and sepsis. Continue IV hydration. Avoid nephrotoxins. Replace magnesium with IV magnesium 1 g. Check BMP and magnesium. Replace electrolytes as needed Hypernatremia: change IVF to 1/2 NS and monitor lytes Severe protein calorie malnutrition patient with low albumin, low BMI, cachectic , weak handgrip, muscle wasting and decreased p.o. intake. Ensure and ice cream 3 times a day. Consult dietitian Continue mirtazapine Check orthostatic vital signs DVT prophylaxis with SCD and early ambulation Discussed with the patient and the at bedside. Patient and with multiple questions all answered to the best of my ability. Discharge plan discharge on p.o. antibiotic to rehab.
[2018-10-23] MEDS: Azithromycin Inj 500 MG in Sodium Chlor 0.9% Inj 250 ML IV.SIG SCH (17:50)
[2018-10-24] MEDS: Heparin - SQ 10,000 UNITS/ML Vial SQ SCH ×2 (02:55→08:50)
[2018-10-24] MEDS: Sod Chloride 0.9% Inj 1,000 ML IV.CONT SCH (02:56)
[2018-10-24] MEDS: Sodium Chloride 0.45 % Inj 1,000 ML IV.CONT SCH (04:52)
[2018-10-24 07:05] LABS: Baso % (Auto) 0.2 % (0.0-2.0); Hematocrit 23.7 % (39.0-51.0); Lymph # (Auto) 1.4 th/mm3 (1.0-4.8); Lymph % (Auto) 14.2 % (9.0-44.0); Mean Corpuscular HGB Conc 33.7 % (32.0-36.0); Mean Corpuscular Hemoglobin 30.9 pg (27.0-34.0); Mean Corpuscular Volume 91.6 fL (80.0-100.0); Mean Platelet Volume 9.7 fL (7.0-11.0); Mono # (Auto) 0.7 th/mm3 (0.0-0.9); Mono % (Auto) 6.8 % (0.0-8.0); Neut % (Auto) 78.8 % (16.0-70.0); Platelet Count 146 th/mm3 (150-450); Red Blood Count 2.59 mil/mm3 (4.50-5.90); Red Cell Distribution Width 16.8 % (11.6-17.2); White Blood Count 10.1 th/mm3 (4.0-11.0)
[2018-10-24 07:23] LABS: Calcium 8.3 mg/dL (8.5-10.1); Carbon Dioxide 19.5 meq/L (21.0-32.0)
[2018-10-24 08:27] LABS: Lymphocytes 5 % (9-44); Metamyelocytes 2 % (0-1); Monocytes 8 % (0-8); Myelocytes 3 % (0-0); Platelet Morphology Normal (Normal)
[2018-10-24] MEDS: Calcitriol 0.25 MCG Capsule PO SCH (08:40)
[2018-10-24] MEDS: Mirtazapine 15 MG Tablet PO SCH (08:40)
[2018-10-24] MEDS: Megestrol Acetate Liq 400 MG/10 ML UDC PO SCH (08:40)
[2018-10-24] MEDS: Magnesium Oxide 400 MG Tablet PO SCH (08:40)
[2018-10-24] MEDS: Pantoprazole Sodium 20 MG DR Tablet PO SCH (08:41)
[2018-10-24] MEDS: Ferrous Sulfate 325 MG Tablet PO SCH (08:41)
[2018-10-24] MEDS ORDERED: predniSONE 20 MG Tablet PO SCH (09:00)
[2018-10-24 09:37] VITALS: BP 156/76; PULSE 95; RESP 20; TEMP 98.5; O2SAT 91
== END 2018-10-24 11:18 ==
LOC: NEPE 15:31 → NEDA 17:34 → N07 19:05
PROVIDERS: ADMIT Hospitalist; ATTEND Hospitalist